=== PATIENT | male | born 1980 | race African-American/Black ===

== ENCOUNTER 2018-12-24 09:49 | Emergency (ER) | payer MEDICAID ==
[~2018-12-24] VITALS: Ht 177.8 cm; Wt 82.0 kg
[2018-12-24] MEDS ORDERED: KETOROLAC 15MG/ML VIAL IV ONE (10:15)
[2018-12-24] MEDS ORDERED: MORPHINE SULFATE 4 MG/ML CPJ (NOT FOR IM USE) IV ONE ×3 (10:15→16:00)
[2018-12-24 16:25] VITALS: BP 132/74
== END 2018-12-24 16:10 | disposition short-term general hospital (02) ==
LOC: ER 09:49
DX: S82.831A Other fracture of upper and lower end of right fibula, initial encounter for closed fracture (principal); W50.2XXA Accidental twist by another person, initial encounter; Y93.89 Activity, other specified; Y92.89 Other specified places as the place of occurrence of the external cause; Y99.8 Other external cause status
CPT/HCPCS: 27780; 73560; 73590; 73600; 73610; 73620; 96374; 96375; 96376; 99285; J1885; J2270; L1830